=== PATIENT | female | born 1975 | race Caucasian/White ===

== ENCOUNTER 2016-10-25 14:30 | Inpatient (IN) | payer MEDICAID ==
[~2016-10-25] VITALS: Ht 157.5 cm; Wt 123.4 kg
[~2016-10-25 14:30] MED LIST: ACT30 PO; ASPIR 8181 MG PO; ASPIR-LOW81 M1 PO; ASPIRIN; ATI0.5 PO; CIP500 PO; COL100 PO; COZAAR100 MG PO; COZAAR50 MG PO; FERROUS SULFAT325 M2 PO; GABAPENTIN PO; GLIPIZIDE5 MG PO; GLU850 PO; IBU-6600 MG PO; JARDIANCE25 MG PO; KEF500 PO; LEXAPRO10 MG PO; LOR PO; LOSARTAN; LOSARTAN PO; MEDDP PO; METFORMIN HCL1000 MG PO; MOTRIN800 MG PO; NOR10T PO; PER5 PO; PRI20 PO; PRILOSEC; ROBAXIN-750750 MG PO; SIMVASTATIN; SIMVASTATIN20 M1 PO; TRE400 PO; VENTOLIN H0.09 MG/A1 INH; VIC PO; ZOC20 PO
[2016-10-25 17:05] LABS: BASOPHIL % 0.4 % (0-2); CALCIUM 8.7 mg/dL (8.5-10.1); CARBON DIOXIDE 27.2 mmol/L (21-32); CHLORIDE SERUM 104 mmol/L (98-107); CREATININE SERUM 0.7 mg/dL (0.6-1.0); GFR1 > 60 mL/min; GLUCOSE SERUM 101 mg/dL (74-106); PLATELET COUNT 344 x10^3mcL (130-400); POTASSIUM SERUM 4.1 mmol/L (3.5-5.1); SODIUM SERUM 139 mmol/L (136-145)
[2016-10-25 17:07] LABS: RED CELL DISTRIBUTION WIDTH 24.6 % (11.5-14.5)
[2016-10-25 17:11] LABS: ALBUMIN 3.6 g/dL (3.4-5.0); ALKALINE PHOSPHATASE 113 U/L (46-116); ALT/SGPT 109 U/L (14-59); AST/SGOT 76 U/L (15-37); BILIRUBIN TOTAL 0.2 mg/dL (0.20-1.00); TOTAL PROTEIN, SERUM 7.8 g/dL (6.4-8.2)
[2016-10-25] MEDS ORDERED: METOPROLOL SUCC50 M2 PO (17:44)
[2016-10-25 18:50] LABS: T3 TOTAL 1.14 ng/mL
[2016-10-25 18:51] LABS: CHOLESTEROL/HDL RATIO 3.8; MAGNESIUM 1.7 mg/dL (1.8-2.4); PHOSPHOROUS 3.6 mg/dL (2.5-4.9)
[2016-10-25 18:59] LABS: FREE T4 0.79 ng/dL (0.76-1.46); FREE THYROXINE INDEX 2.4 ug/dL (1.4-4.5); T4(THYROXINE) 7.8 ug/dL (4.7-13.3)
[2016-10-25 20:13] VITALS: BP 125/71
[2016-10-26] VITALS (7 sets, daily range): BP systolic 96–123; BP diastolic 57–79
[2016-10-26 01:06] LABS: microscopic required? NO
[2016-10-26 01:19] LABS: UA SPECIFIC GRAVITY 1.015 (1.005-1.035); urine erythrocyte NEGATIVE (NEGATIVE)
[2016-10-26 01:25] LABS: AMPHETAMINE QUAL UR NONE DETECTED (NEG <=1000)
[2016-10-26 06:09] LABS: BASOPHIL % 0.4 % (0-2); PLATELET COUNT 295 x10^3mcL (130-400)
[2016-10-26 06:26] LABS: CALCIUM 8.4 mg/dL (8.5-10.1); CARBON DIOXIDE 25.8 mmol/L (21-32); CHLORIDE SERUM 104 mmol/L (98-107); CREATININE SERUM 0.6 mg/dL (0.6-1.0); GFR1 > 60 mL/min; GLUCOSE SERUM 108 mg/dL (74-106); PHOSPHOROUS 4.6 mg/dL (2.5-4.9); POTASSIUM SERUM 3.6 mmol/L (3.5-5.1); SODIUM SERUM 138 mmol/L (136-145)
[2016-10-26 08:04] LABS: rbc morphology (normal/abnorm) ABNORMAL (NORMAL)
[2016-10-26] MEDS ORDERED: OMEPRAZOLE40 M1 PO (16:43)
[2016-10-26] MEDS ORDERED: GLUCOTROL5 MG PO (17:35)
== END 2016-10-26 18:33 | disposition home or self-care (01) | DRG 243 ==
LOC: ED 14:30 → DU 17:28
PROVIDERS: Emergency Medicine; ADMIT Family Medicine
DX: K21.9 Gastro-esophageal reflux disease without esophagitis (principal); D68.69 Other thrombophilia; E11.51 Type 2 diabetes mellitus with diabetic peripheral angiopathy without gangrene; Z68.42 Body mass index [BMI] 45.0-49.9, adult; E11.65 Type 2 diabetes mellitus with hyperglycemia; E83.42 Hypomagnesemia; B37.3 Candidiasis of vulva and vagina; I10 Essential (primary) hypertension; J45.909 Unspecified asthma, uncomplicated; I16.0 Hypertensive urgency; F41.8 Other specified anxiety disorders; E78.5 Hyperlipidemia, unspecified; Z87.442 Personal history of urinary calculi
CPT/HCPCS: 80307; 82962; 83880; 84439; 85378; G0480; J1450; J2270; J3010; J3535; J7030; J7040; J7613; Q0092

== ENCOUNTER 2016-10-28 02:36 | Emergency (ER) | payer MEDICAID ==
[~2016-10-28 02:36] MED LIST changes: +GLUCOTROL5 MG PO; +METOPROLOL SUCC50 M2 PO; +OMEPRAZOLE40 M1 PO
[2016-10-28 06:01] VITALS: BP 146/72
== END 2016-10-28 06:01 | disposition home or self-care (01) ==
LOC: ED 02:36
DX: M54.5 Low back pain (principal); E11.9 Type 2 diabetes mellitus without complications; I10 Essential (primary) hypertension; E78.00 Pure hypercholesterolemia, unspecified; Z98.890 Other specified postprocedural states
CPT/HCPCS: J1885

== ENCOUNTER 2016-12-04 05:25 | Inpatient (IN) | payer MEDICAID ==
[~2016-12-04] VITALS: Ht 157.5 cm; Wt 120.8 kg
[2016-12-04 07:00] LABS: CALCIUM 9.1 mg/dL (8.5-10.1); CARBON DIOXIDE 28.4 mmol/L (21-32); CHLORIDE SERUM 102 mmol/L (98-107); CREATININE SERUM 0.7 mg/dL (0.6-1.0); GFR1 > 60 mL/min; GLUCOSE SERUM 184 mg/dL (74-106); POTASSIUM SERUM 3.9 mmol/L (3.5-5.1); SODIUM SERUM 138 mmol/L (136-145)
[2016-12-04 07:03] LABS: ALBUMIN 3.4 g/dL (3.4-5.0); ALKALINE PHOSPHATASE 93 U/L (46-116); ALT/SGPT 95 U/L (14-59); AST/SGOT 43 U/L (15-37); BILIRUBIN TOTAL 0.3 mg/dL (0.20-1.00); TOTAL PROTEIN, SERUM 7.7 g/dL (6.4-8.2)
[2016-12-04 07:17] LABS: BASOPHIL % 0.4 % (0-2); PLATELET COUNT 285 x10^3mcL (130-400)
[2016-12-04 07:24] LABS: RED CELL DISTRIBUTION WIDTH 15.7 % (11.5-14.5)
[2016-12-04] MEDS ORDERED: GLUCOTROL10 MG PO (08:32)
[2016-12-04] MEDS ORDERED: MAPAP500 M3 PO (08:33)
[2016-12-04] MEDS ORDERED: DILTIAZEM HCL120 M2 PO (08:33)
[2016-12-04] MEDS ORDERED: MASON NATURAL1000 IU PO (08:34)
[2016-12-04] MEDS ORDERED: FLA500 PO (08:34)
[2016-12-04] MEDS ORDERED: DICLOFENAC SODI75 MG PO (08:35)
[2016-12-04 09:03] LABS: PHOSPHOROUS 4.3 mg/dL (2.5-4.9)
[2016-12-04 09:15] LABS: FREE T4 1.43 ng/dL (0.76-1.46); FREE THYROXINE INDEX 3.6 ug/dL (1.4-4.5)
[2016-12-04 09:20] LABS: T3 TOTAL 1.77 ng/mL
[2016-12-04 09:47] LABS: CHOLESTEROL/HDL RATIO 3.9; MAGNESIUM 1.6 mg/dL (1.8-2.4)
[2016-12-04 11:43] VITALS: BP 137/87
[2016-12-04 18:31] VITALS: BP 119/78
[2016-12-04 21:25] VITALS: BP 127/73
[2016-12-05 00:20] LABS: microscopic required? NO
[2016-12-05 00:48] LABS: UA SPECIFIC GRAVITY 1.015 (1.005-1.035); urine erythrocyte NEGATIVE (NEGATIVE)
[2016-12-05 00:56] LABS: AMPHETAMINE QUAL UR NONE DETECTED (NEG <=1000)
[2016-12-05 05:12] VITALS: BP 151/85
[2016-12-05 06:29] LABS: BASOPHIL % 0.4 % (0-2); PLATELET COUNT 261 x10^3mcL (130-400)
[2016-12-05 06:34] LABS: CALCIUM 8.6 mg/dL (8.5-10.1); CHLORIDE SERUM 104 mmol/L (98-107); CREATININE SERUM 0.6 mg/dL (0.6-1.0); GFR1 > 60 mL/min; GLUCOSE SERUM 159 mg/dL (74-106); MAGNESIUM 2.1 mg/dL (1.8-2.4); POTASSIUM SERUM 4.2 mmol/L (3.5-5.1); SODIUM SERUM 138 mmol/L (136-145)
[2016-12-05 07:23] LABS: RED CELL DISTRIBUTION WIDTH 14.9 % (11.5-14.5)
[2016-12-05 08:45] VITALS: BP 151/85
[2016-12-05 09:44] VITALS: BP 120/81
[2016-12-05 13:20] VITALS: BP 119/75
[2016-12-05 21:44] VITALS: BP 110/63
[2016-12-06 05:38] VITALS: BP 122/87
[2016-12-06 07:18] LABS: BASOPHIL % 0.4 % (0-2); PLATELET COUNT 239 x10^3mcL (130-400)
[2016-12-06 07:20] LABS: RED CELL DISTRIBUTION WIDTH 15.4 % (11.5-14.5)
[2016-12-06 07:37] LABS: CALCIUM 8.5 mg/dL (8.5-10.1); CARBON DIOXIDE 23.9 mmol/L (21-32); CHLORIDE SERUM 105 mmol/L (98-107); CREATININE SERUM 0.6 mg/dL (0.6-1.0); GFR1 > 60 mL/min; GLUCOSE SERUM 163 mg/dL (74-106); MAGNESIUM 1.7 mg/dL (1.8-2.4); PHOSPHOROUS 3.9 mg/dL (2.5-4.9); POTASSIUM SERUM 4.2 mmol/L (3.5-5.1); SODIUM SERUM 137 mmol/L (136-145)
[2016-12-06 09:26] VITALS: BP 126/70
[2016-12-06 12:25] VITALS: BP 127/88
[2016-12-06 15:57] VITALS: BP 115/41
[2016-12-06 18:21] VITALS: BP 120/63
[2016-12-06 22:04] VITALS: BP 137/80
[2016-12-07 06:22] VITALS: BP 131/85
[2016-12-07 06:37] LABS: BASOPHIL % 0.5 % (0-2); PLATELET COUNT 242 x10^3mcL (130-400)
[2016-12-07 06:40] LABS: RED CELL DISTRIBUTION WIDTH 14.9 % (11.5-14.5)
[2016-12-07 06:53] LABS: CALCIUM 8.4 mg/dL (8.5-10.1); CARBON DIOXIDE 24.6 mmol/L (21-32); CHLORIDE SERUM 106 mmol/L (98-107); CREATININE SERUM 0.6 mg/dL (0.6-1.0); GFR1 > 60 mL/min; GLUCOSE SERUM 128 mg/dL (74-106); MAGNESIUM 1.6 mg/dL (1.8-2.4); PHOSPHOROUS 4.1 mg/dL (2.5-4.9); POTASSIUM SERUM 3.9 mmol/L (3.5-5.1); SODIUM SERUM 141 mmol/L (136-145)
[2016-12-07 08:30] VITALS: BP 115/74
[2016-12-07 10:22] LABS: TOTAL PROTEIN CSF 105 mg/dL (15-45)
[2016-12-07 10:29] LABS: APPEARANCE CSF HAZY; COLOR CSF COLORLESS; WBC CSF 1290 /cumm (0-5)
[2016-12-07 10:30] LABS: LYMPHOCYTE CSF 87 % (40-80); MONOCYTE CSF 8 %; RBC CSF 0 /cumm (0)
[2016-12-07 13:40] VITALS: BP 140/82
[2016-12-07 17:26] VITALS: BP 131/79
[2016-12-07 21:36] VITALS: BP 129/82
[2016-12-08 05:38] VITALS: BP 106/66
[2016-12-08 06:36] LABS: CALCIUM 8.4 mg/dL (8.5-10.1); CARBON DIOXIDE 26.4 mmol/L (21-32); CHLORIDE SERUM 106 mmol/L (98-107); CREATININE SERUM 0.6 mg/dL (0.6-1.0); GFR1 > 60 mL/min; GLUCOSE SERUM 175 mg/dL (74-106); MAGNESIUM 1.8 mg/dL (1.8-2.4); SODIUM SERUM 140 mmol/L (136-145)
[2016-12-08 06:58] LABS: BASOPHIL % 0.5 % (0-2); PLATELET COUNT 248 x10^3mcL (130-400); RED CELL DISTRIBUTION WIDTH 14.9 % (11.5-14.5)
[2016-12-08 09:47] VITALS: BP 140/85
[2016-12-08 14:01] VITALS: BP 134/78
[2016-12-08 17:22] VITALS: BP 118/82
[2016-12-08 17:54] VITALS: BP 118/82
[2016-12-08 22:03] VITALS: BP 118/82
[2016-12-09 06:09] LABS: BASOPHIL % 0.4 % (0-2); PLATELET COUNT 266 x10^3mcL (130-400)
[2016-12-09 06:40] LABS: RED CELL DISTRIBUTION WIDTH 15.1 % (11.5-14.5)
[2016-12-09 07:48] LABS: CALCIUM 8.7 mg/dL (8.5-10.1); CARBON DIOXIDE 27.1 mmol/L (21-32); CHLORIDE SERUM 105 mmol/L (98-107); CREATININE SERUM 0.6 mg/dL (0.6-1.0); GFR1 > 60 mL/min; GLUCOSE SERUM 113 mg/dL (74-106); POTASSIUM SERUM 3.8 mmol/L (3.5-5.1); SODIUM SERUM 139 mmol/L (136-145)
[2016-12-09 09:00] VITALS: BP 115/62
[2016-12-09 13:55] VITALS: BP 120/70
[2016-12-09 17:30] VITALS: BP 136/79
[2016-12-09 22:17] VITALS: BP 120/73
[2016-12-10 05:58] VITALS: BP 126/70
[2016-12-10 07:14] LABS: CALCIUM 8.8 mg/dL (8.5-10.1); CARBON DIOXIDE 26.5 mmol/L (21-32); CHLORIDE SERUM 106 mmol/L (98-107); CREATININE SERUM 0.6 mg/dL (0.6-1.0); GFR1 > 60 mL/min; GLUCOSE SERUM 93 mg/dL (74-106); POTASSIUM SERUM 4.4 mmol/L (3.5-5.1); SODIUM SERUM 143 mmol/L (136-145)
[2016-12-10 10:04] VITALS: BP 135/88
[2016-12-10 12:26] VITALS: BP 135/88
[2016-12-10] MEDS ORDERED: MECLIZINE HCL12.5 MG PO ×2 (13:48→14:28)
[2016-12-10] MEDS ORDERED: ESGIC CAPSULE1 EACH PO (13:50)
[2016-12-10] MEDS ORDERED: NOR10T PO (13:50)
== END 2016-12-10 15:15 | disposition home or self-care (01) | DRG 50 ==
LOC: ED 05:25 → DU 08:22 → MU 12-10 06:55
PROVIDERS: Emergency Medicine; ADMIT Family Medicine
PROC: B01B1ZZ Fluoroscopy of Spinal Cord using Low Osmolar Contrast (ICD-10-PCS; principal; 2016-12-06)
PROC: 009U3ZX Drainage of Spinal Canal, Percutaneous Approach, Diagnostic (ICD-10-PCS; principal; 2016-12-06)
DX: A92.39 West Nile virus infection with other complications (principal); A87.8 Other viral meningitis; E11.51 Type 2 diabetes mellitus with diabetic peripheral angiopathy without gangrene; E11.65 Type 2 diabetes mellitus with hyperglycemia; Z68.42 Body mass index [BMI] 45.0-49.9, adult; K76.0 Fatty (change of) liver, not elsewhere classified; M94.0 Chondrocostal junction syndrome [Tietze]; I10 Essential (primary) hypertension; E05.90 Thyrotoxicosis, unspecified without thyrotoxic crisis or storm; E66.01 Morbid (severe) obesity due to excess calories; Z87.442 Personal history of urinary calculi; Z79.84 Long term (current) use of oral hypoglycemic drugs
CPT/HCPCS: 62272; 78598; 82962; 83880; 84439; 86694; 86788; 86789; 87116; 87206; 87210; 94150; A9540; J0696; J0780; J1885; J2060; J2270; J2405; J3010; J3475; J7030; J7613; J7620; J8597; Q0092; Q0163

== ENCOUNTER 2016-12-29 03:23 | Emergency (ER) | payer MEDICAID ==
[~2016-12-29 03:23] MED LIST changes: +DICLOFENAC SODI75 MG PO; +DILTIAZEM HCL120 M2 PO; +ESGIC CAPSULE1 EACH PO; +FLA500 PO; +GLUCOTROL10 MG PO; +MAPAP500 M3 PO; +MASON NATURAL1000 IU PO; +MECLIZINE HCL12.5 MG PO
[2016-12-29 06:23] VITALS: BP 105/59
== END 2016-12-29 06:24 | disposition home or self-care (01) ==
LOC: ED 03:23
DX: R51 Headache (principal); M54.9 Dorsalgia, unspecified; J45.909 Unspecified asthma, uncomplicated; I10 Essential (primary) hypertension; E11.9 Type 2 diabetes mellitus without complications; Z79.84 Long term (current) use of oral hypoglycemic drugs
CPT/HCPCS: J1200; J2765; J3010; J3475; J7030

== ENCOUNTER 2017-03-03 16:19 | Inpatient (IN) | payer MEDICAID ==
[~2017-03-03] VITALS: Ht 157.5 cm; Wt 127.0 kg
--- NOTE | 2017-03-03 17:09 | NUR ---
LOWER BILATERAL QUAD 10/10 PAIN THAT STARTED TODAY 1200NOON. ABD ROUND AND FIRM TENDER TO PALP WITHOUT MASSESS PRESENT. BS PRESENT. HAD N/V/D TODAY. NOW CLAIMS DIARRHEA. PT ARRIVES ALERT AND ORIENTED WITH FLUSHED FACE AND DIAPHORETIC. SHOWS MILD DISTRESS DUE TO 10/10 PAIN. URINE OBTAINED AND DIP PERFORMED. AWATING MD VANG AT THIS TIME
--- NOTE | 2017-03-03 18:16 | NUR ---
DR PIÑA AT BEDSIDE FOR EVAL
--- NOTE | 2017-03-03 18:48 | NUR ---
LEFT FOR CT VIA RNEY
[2017-03-03 19:00] LABS: BASOPHIL % 0.2 % (0-2); PLATELET COUNT 289 x10^3mcL (130-400); RED CELL DISTRIBUTION WIDTH 14.4 % (11.5-14.5)
[2017-03-03 19:05] LABS: CALCIUM 8.6 mg/dL (8.5-10.1); CARBON DIOXIDE 23.7 mmol/L (21-32); CHLORIDE SERUM 105 mmol/L (98-107); CREATININE SERUM 0.7 mg/dL (0.6-1.0); GFR1 > 60 mL/min; GLUCOSE SERUM 162 mg/dL (74-106); POTASSIUM SERUM 3.9 mmol/L (3.5-5.1); SODIUM SERUM 139 mmol/L (136-145)
[2017-03-03 19:09] LABS: ALBUMIN 3.5 g/dL (3.4-5.0); ALKALINE PHOSPHATASE 94 U/L (46-116); ALT/SGPT 88 U/L (14-59); AMYLASE 43 U/L (25-115); AST/SGOT 45 U/L (15-37); LIPASE 147 IU/L (73-393); TOTAL PROTEIN, SERUM 7.7 g/dL (6.4-8.2)
--- NOTE | 2017-03-03 19:11 | NUR ---
REPORT GIVEN TO ERIK TOOL PUSHER JEANETTE
--- NOTE | 2017-03-03 19:26 | NUR ---
PT TAKEN TO US VIA WC.
--- NOTE | 2017-03-03 19:58 | NUR ---
MEDICATED PT FOR PAIN. PLEASE SEE EMAR.
[2017-03-03] MEDS ORDERED: COZAAR50 M1 PO (22:14)
[2017-03-03] MEDS ORDERED: ADULT LOW DOSE81 MG PO (22:15)
[2017-03-03] MEDS ORDERED: JARDIANCE25 MG PO (22:15)
[2017-03-03] MEDS ORDERED: GOOD SENSE OMEP20 MG PO (22:15)
--- NOTE | 2017-03-03 22:22 | NUR ---
REPORT GIVEN TO JEANETTE DUONG TO ASSUME CARE OF THE PT.
[2017-03-03 22:59] LABS: T3 TOTAL 1.06 ng/mL
[2017-03-03 23:06] LABS: FREE T4 1.01 ng/dL (0.76-1.46); FREE THYROXINE INDEX 2.8 ug/dL (1.4-4.5); T4(THYROXINE) 8.9 ug/dL (4.7-13.3)
[2017-03-03 23:13] VITALS: BP 121/66
[2017-03-03 23:14] LABS: PHOSPHOROUS 3.4 mg/dL (2.5-4.9)
--- NOTE | 2017-03-03 23:16 | NUR ---
RECEIVED PT FROM ED VIA BIANKA. ORIENTED PT TO ROOM AND SURROUNDINGS. IV NOTED TO LEFT WRIST PATENT AND INTACT .TELE 24 PALCED ON PT READING NSR. INSTRUCTED PT ON THE USE OF CALL LIGHT FOR ASSISTANCE. ENDORSED PT TO PRIMARY NURSE RHODA
[2017-03-03 23:24] LABS: CHOLESTEROL/HDL RATIO 4.9
--- NOTE | 2017-03-04 01:44 | NUR ---
PT C/O OF MID UPPER ABDO PAIN CRAMPING IN NATUREAT THE SCALE OF 6/10,PT WAS MEDICATED WITH M/S 2 MG IV ORDER AND WILL CONTINUE TO MONITOR.
--- NOTE | 2017-03-04 01:45 | NUR ---
URINE SAMPLE COLLECTED AND WILL SEND TO THE LAB,WILL CONTINUE TO MONITOR.
[2017-03-04 02:37] LABS: microscopic required? NO
[2017-03-04 02:52] LABS: AMPHETAMINE QUAL UR NONE DETECTED (NEG <=1000)
[2017-03-04 03:02] LABS: urine erythrocyte NEGATIVE (NEGATIVE)
[2017-03-04 05:09] VITALS: BP 127/84
--- NOTE | 2017-03-04 06:19 | NUR ---
PT HAD A RESTING NIGHT V/S STABLE,KEPT CLEAN AND DRY TO TOUXH AND NO CHANGE IN CONDITION AT THIS TIME,WILL CONTINUE TO MONITOR.
[2017-03-04 06:38] LABS: BASOPHIL % 0.4 % (0-2); PLATELET COUNT 261 x10^3mcL (130-400); RED CELL DISTRIBUTION WIDTH 14.3 % (11.5-14.5)
--- NOTE | 2017-03-04 07:30 | NUR ---
RESTING IN BED, AROUSABLE TO LIGHT NOISE, ABLE TO VERBALIZE NEEDS WITH CLEAR AND COHERENT SPEECH, REPORTS ABD PAIN 1/10, CONTROLLED AT THIS LEVEL, "FEELS HUNRY," DENIES GI DISTRESS, ACTIVE BOWEL SOUNDS X4 QUADS, ABD ROUND, SOFT, NONDISTENDED, NONTENDER, LAST MENSES 02/04/17, , HX TUBAL LIGATION 15 YRS AGO, DENEIS HEAVY MENSES X2YRS, ON TELE #24 NSR ON MONITOR, DENIES HEART RELATED PAIN OR DISCOMFORT, IV AT L/WRIST INFUSING NS AT 150ML/HR CALL LIGHT WITHIN REACH, WILL CONTINUE TO PROVIDE CARE.
[2017-03-04 08:50] VITALS: BP 105/62
--- NOTE | 2017-03-04 10:46 | NUR ---
LATE ENTRY FOR 0845: ABLE TO TAKE ALL PO MEDS WITHOUT GI DISTRESS, REPORTS ABD PAIN 3/10, REQUESTING PAIN MED, OFFERED NORCO, PT STATES NORCO CAUSES HER "HEARTBURN AND ITCHY ALL OVER," ASSISTED TO POSITION OF COMFORT, WILL CONTINUE TO PROVIDE CARE.
--- NOTE | 2017-03-04 10:51 | NUR ---
PT RESTING IN BED WITH EYES CLOSED, SNORING, UNDER NO APPARENT DISTRESS.
--- NOTE | 2017-03-04 11:05 | NUR ---
PT C/O ABD PAIN 01/10, DECLINED HOT COMPRESS, ASSISTED TO POSITION OF COMFORT, PROVIDED PAIN MED ORDERED, CALL LIGHT WITHIN REACH.
--- NOTE | 2017-03-04 13:05 | NUR ---
ABLE TO TOLERATE LUNCH WITHOUT GI DISTRESS, ABD PAIN IS CONTROLLED AT 1/10, CALL LIGHT WITHIN REACH.
[2017-03-04 16:45] VITALS: BP 97/68
--- NOTE | 2017-03-04 18:20 | NUR ---
HAS BEEN TOLERATING BOWEL PREP, IS AWARE OF COLONOSCOPY IN AM 03/05/17, PAIN IS CONTROLLED AT THIS TIME, DENIES GI DISTRESS, WILL BE NPO AFTER MIDNIGHT, NO OTHER SIGNIFICANT CHANGES NOTED, CARE WILL BE ENDORSED TO NIGHT NURSE.
--- NOTE | 2017-03-04 19:37 | NUR ---
SHIFT REASSESSMENT DONE.PATIENT ALERT AND ORIENTED.CZECH,NEEDS ANTICIPATED.FAMILY AT BEDSIDE,SUPPORTIVE OF CARE.PATIENT IN RESTROOM,BM AT THIS TIME.BRP.NS AT 150 CC/ HOUR.IV SITE GOOD.MEDSURG STATUS,NO TELE.SCD.CAME IN WITH ABD PAIN,COLONOSCOPY IN AM,NO CONSENT YET,CALL LITE IN REACH.
[2017-03-04 20:48] VITALS: BP 112/54
--- NOTE | 2017-03-04 21:25 | NUR ---
NS AT 150 CC/ HOUR.IV SITE,HAS NO EXTENSION TUBING,APPLIED ONE FOR EASIER HANDLING,MEDS GIVEN PO WITHOUT ANY INCEDENT.FAMILY WAS HERE VISITING.CALL LITE IN REACH.MAINLY [place],NEEDS ANTICIPATED.
--- NOTE | 2017-03-05 02:00 | NUR ---
CHECKLIST INITIATED,NPO AFTER MIDNITE,COLONOSCOPY TO FOLLOW IN AM.WILL HAVE HER SIGN CONSENT LATER THIS AM.NS AT 150 CC/ HOUR.IV SITE R WRIST PATENT.CALL LIGHT IN REACH.
[2017-03-05 05:29] VITALS: BP 100/66
--- NOTE | 2017-03-05 06:10 | NUR ---
PATIENT I AND O MEASURED.NS AT 150 CC/ HOUR.CONSENT FOR COLONOSCOPY IN CHART AND SIGNED.GOOD CLEAR RETURN BM COLONOSCOPY PREP.WILL ENDORSE TO INCOMING SHIFT.
[2017-03-05 06:54] LABS: CALCIUM 8.2 mg/dL (8.5-10.1); CARBON DIOXIDE 22.8 mmol/L (21-32); CHLORIDE SERUM 108 mmol/L (98-107); CREATININE SERUM 0.5 mg/dL (0.6-1.0); GFR1 > 60 mL/min; GLUCOSE SERUM 115 mg/dL (74-106); POTASSIUM SERUM 3.6 mmol/L (3.5-5.1); SODIUM SERUM 139 mmol/L (136-145)
[2017-03-05 07:27] LABS: BASOPHIL % 0.7 % (0-2); PLATELET COUNT 261 x10^3mcL (130-400); RED CELL DISTRIBUTION WIDTH 14.2 % (11.5-14.5)
--- NOTE | 2017-03-05 07:30 | NUR ---
RESTING IN BED, AROUSABLE TO LIGHT NOISE, ABLE TO VERBALIZE NEEDS WITH CLEAR AND COHERENT SPEECH, SYM CHEST EXPANSION, UNLABORED BREATHING, ACTIVE BOWEL SOUNDS X4 QUADS, REPORTS ABD PAIN 2/10, DENIES N&V, COMPLETED BOWEL PREP FOR COLONOSCOPY THIS AM, CALL LIGHT WITHIN REACH, WILL CONTINUE TO PROVIDE CARE.
--- NOTE | 2017-03-05 07:42 | NUR ---
REPORT GIVEN TO DEMETRIO REID
[2017-03-05 09:20] VITALS: BP 115/80
--- NOTE | 2017-03-05 10:50 | NUR ---
LATE ENTRY FOR 829: BP MEDS NOT GIVEN, PT REPORTED FEELING "GENERALIZED WEAKNESS," BP 105/62, WILL BE HAVING COLONOSCOPY TODAY.
[2017-03-05 11:01] VITALS: BP 106/71
--- NOTE | 2017-03-05 15:21 | NUR ---
C/O DARDEN 11/10, LIGHTS DIMMED, DOOR PARTIALLY CLOSED, WILL ADMINISTER DOSE OF FIORICET ORDERED.
--- NOTE | 2017-03-05 16:50 | NUR ---
SITTING UP IN CHAIR AFTER AMBULATING IN HALLWAY, REPORTS ABD PAIN AND DARDEN CONTROLLED AT THIS, DR DAVIS IN ROOM TO SPEAK W/ PT, PROVIDED RESULTS FROM COLONOSCOPY, ALL QUESTIONS ANSWERED.
[2017-03-05 17:28] VITALS: BP 101/63
--- NOTE | 2017-03-05 19:30 | NUR ---
REC'D PT FROM DAY NURSE. AAOX4, SPEECH CLEAR, FOLLOWS COMMANDS. TURKISH SPEAKING. FAMILY AT BEDSIDE. MED SURG PT. NO TELE. DENIES CP, DIZZINESS, OR PALPITATIONS. NO EDEMA NOTED. DENIES RESP DISTRESS OR SOB. BREATHING EVEN/UNLABORED ON RA. REPORTS ABD PAIN TO MARK LOWER QUAD 4/10, TOLERABLE AT THIS TIME. PT IS S/P COLONOSCOPY. NO BM SINCE PROCEDURE BUT IS PASSING GAS. DENIES N/V. TOLERATING DIET. VOIDING FREELY. AMBULATORY. SKIN INTACT. CALL LIGHT WITHIN REACH, BED AT LOWEST POSITION. WILL CONTINUE TO MONITOR.
--- NOTE | 2017-03-05 21:30 | NUR ---
PT C/O DARDEN 10/11. FIORICET GIVEN PER ORDER. WILL MONITOR FOR RELIEF.
[2017-03-05 21:40] VITALS: BP 104/67
--- NOTE | 2017-03-05 22:00 | NUR ---
PT C/O SCRATCHY THROAT WITH DRY COUGH. DR. BOB MADE AWARE.
--- NOTE | 2017-03-05 22:48 | NUR ---
ROBITUSSIN WITH CODEINE GIVEN FOR ITCHY THROAT. WILL MONITOR FOR RELIEF.
--- NOTE | 2017-03-05 23:09 | NUR ---
PT C/O PELVIC PAIN 01/10. MORPHINE GIVEN PER ORDER. WILL MONITOR FOR RELIEF.
--- NOTE | 2017-03-06 00:40 | NUR ---
PT RESTING IN BED WITH EYES CLOSED. NO SIGNS OF DISTRESS NOTED. BREATHING EVEN/UNLABORED ON RA. CALL LIGHT WITHIN REACH, BED AT LOWEST POSITION. WILL CONTINUE TO MONITOR.
--- NOTE | 2017-03-06 02:39 | NUR ---
PT AWAKE. STILL C/O SCRATCHY THROAT. STATED THE ROBITUSSIN DID NOT WORK. DR. BOB MADE AWARE. CEPACOL GIVEN PER ORDER. WILL MONITOR FOR RELIEF.
--- NOTE | 2017-03-06 02:52 | NUR ---
PT C/O SOME SOB. EXP WHEEZE. RR 18, SPO2 98% ON RA. RT NOTIFIED. BREATHING TREATMENT IN PROGRESS.
--- NOTE | 2017-03-06 03:17 | NUR ---
WHEEZING SUBSIDED. DENIES RESP DISTRESS OR SOB. BREATHING EVEN/UNLABORED ON RA. STILL HAS SCRATCHY THROAT WITH DRY COUGH. WILL GIVE ROBITUSSIN WHEN DUE.
[2017-03-06 05:26] VITALS: BP 101/59
[2017-03-06 06:14] LABS: BASOPHIL % 0.4 % (0-2); PLATELET COUNT 291 x10^3mcL (130-400); RED CELL DISTRIBUTION WIDTH 14.2 % (11.5-14.5)
--- NOTE | 2017-03-06 06:26 | NUR ---
PT RESTING IN BED. STILL HAS A DRY COUGH. ROBITUSSIN WITH CODEINE GIVEN PER ORDER. NO OTHER COMPLAINTS AT THIS TIME. NO BM TODAY, PASSING GAS. TOLERATING DIET. NO SIGNIFICANT CHANGES DURING SHIFT. CALL LIGHT WITHIN REACH, BED AT LOWEST POSITION. WILL ENDORSE TO DAY NURSE.
[2017-03-06 07:09] LABS: CALCIUM 8.9 mg/dL (8.5-10.1); CARBON DIOXIDE 26.1 mmol/L (21-32); CHLORIDE SERUM 106 mmol/L (98-107); CREATININE SERUM 0.5 mg/dL (0.6-1.0); GFR1 > 60 mL/min; GLUCOSE SERUM 146 mg/dL (74-106); MAGNESIUM 1.7 mg/dL (1.8-2.4); PHOSPHOROUS 4.1 mg/dL (2.5-4.9); POTASSIUM SERUM 3.3 mmol/L (3.5-5.1); SODIUM SERUM 138 mmol/L (136-145)
--- NOTE | 2017-03-06 07:30 | NUR ---
RESTING IN BED, AROUSABLE TO LIGHT NOISE, REPORTS DARDEN AND ABD PAIN CONTROLLED AT THIS TIME, DENIES N&V, IV HEP LOCK, CALL LIGHT WITHIN REACH, WILL CONTINUE TO PROVIDE CARE.
--- NOTE | 2017-03-06 09:10 | NUR ---
ABLE TO TAKE ALL MEDS WITHOUT GI DISTRESS, DARDEN IS CONTROLLED AT 2/10, CALL LIGHT WITHIN REACH, WILL CONTINUE TO PROVIDE CARE.
[2017-03-06 09:32] VITALS: BP 115/74
--- NOTE | 2017-03-06 11:00 | NUR ---
C/O SOB AND FATIGUE, LUNGS WITH WHEEZING AT MARK UPPER LOBES, RT CALLED FOR TREATMENT, DR RYAN BURNS, ASSISTED TO SIT UP IN BED FOR BEST BREATHING POSITION, CALL LIGHT WITHIN REACH, WILL CONTINUE TO PROVIDE CARE.
--- NOTE | 2017-03-06 13:53 | NUR ---
PATIENT STATES SHE HAS A SEVERE ALLERGIC REACTION TO IBUPROFEN, DR DAVIS MADE AWARE.
--- NOTE | 2017-03-06 15:04 | NUR ---
DR DAVIS AT BEDSIDE TO SPEAK WITH PATIENT REGARDING DISCHARGE ORDERS.
[2017-03-06 15:17] VITALS: BP 115/74
[2017-03-07] MEDS ORDERED: ZOCOR40 MG PO (10:54)
== END 2017-03-06 15:56 | disposition home or self-care (01) | DRG 249 ==
LOC: ED 16:19 → DU 21:58 → MU 21:58 → DU 22:48 → MU 03-04 11:19
PROVIDERS: Internal Medicine Gastroenterology; Specialist; ADMIT Family Medicine
PROC: 0DBP8ZZ Excision of Rectum, Via Natural or Artificial Opening Endoscopic (ICD-10-PCS; principal; 2017-03-05 09:00)
DX: K52.9 Noninfective gastroenteritis and colitis, unspecified (principal); N17.0 Acute kidney failure with tubular necrosis; D68.69 Other thrombophilia; E11.51 Type 2 diabetes mellitus with diabetic peripheral angiopathy without gangrene; R65.10 Systemic inflammatory response syndrome (SIRS) of non-infectious origin without acute organ dysfunction; E11.65 Type 2 diabetes mellitus with hyperglycemia; K76.0 Fatty (change of) liver, not elsewhere classified; E44.1 Mild protein-calorie malnutrition; Z68.43 Body mass index [BMI] 50.0-59.9, adult; E66.01 Morbid (severe) obesity due to excess calories; R31.0 Gross hematuria; E87.6 Hypokalemia; D12.8 Benign neoplasm of rectum; K64.8 Other hemorrhoids; E78.5 Hyperlipidemia, unspecified; Z87.442 Personal history of urinary calculi; Z79.84 Long term (current) use of oral hypoglycemic drugs
CPT/HCPCS: 45378; 82962; 83880; 84439; J0694; J1170; J1200; J1610; J2250; J2270; J2310; J2405; J3010; J3490; J7030; J7613

== ENCOUNTER 2019-03-23 20:18 | Emergency (ER) | payer MEDICAID ==
[~2019-03-23] VITALS: Ht 157.5 cm; Wt 130.2 kg
[~2019-03-23 20:18] MED LIST changes: +ADULT LOW DOSE81 MG PO; +COZAAR50 M1 PO; +GOOD SENSE OMEP20 MG PO; +ZOCOR40 MG PO
[2019-03-23 20:41] VITALS: Ht 157.5 cm; Wt 130.2 kg
[2019-03-23 22:43] LABS: BASOPHIL % 0.5 % (0-2); PLATELET COUNT 316 x10^3mcL (130-400)
[2019-03-23 22:44] LABS: RED CELL DISTRIBUTION WIDTH 18.5 % (11.5-14.5)
[2019-03-23 22:56] LABS: CALCIUM 8.2 mg/dL (8.5-10.1); CARBON DIOXIDE 29.7 mmol/L (21-32); CHLORIDE SERUM 102 mmol/L (98-107); CREATININE SERUM 0.7 mg/dL (0.6-1.0); GFR1 > 60 mL/min; GLUCOSE SERUM 271 mg/dL (74-106); POTASSIUM SERUM 3.9 mmol/L (3.5-5.1); SODIUM SERUM 138 mmol/L (136-145)
[2019-03-23 23:00] LABS: ALKALINE PHOSPHATASE 141 U/L (46-116); ALT/SGPT 87 U/L (14-59); AMYLASE 35 U/L (25-115); AST/SGOT 40 U/L (15-37); BILIRUBIN TOTAL 0.13 mg/dL (0.20-1.00); LIPASE 146 IU/L (73-393); TOTAL PROTEIN, SERUM 7.2 g/dL (6.4-8.2)
[2019-03-23 23:12] LABS: ALBUMIN 2.8 g/dL (3.4-5.0)
[2019-03-24 00:19] LABS: TOTAL IRON BINDING CAPACITY 358 ug/dL (250-450)
[2019-03-24 00:28] LABS: IRON 15 ug/dL (50-170)
[2019-03-24 01:30] VITALS: BP 135/89
== END 2019-03-24 01:30 | disposition home or self-care (01) ==
LOC: ED 20:18
PROVIDERS: Emergency Medicine
DX: K52.9 Noninfective gastroenteritis and colitis, unspecified (principal)
CPT/HCPCS: J2405

== ENCOUNTER 2019-04-29 17:28 | Emergency (ER) | payer MEDICAID ==
[~2019-04-29] VITALS: Ht 157.5 cm; Wt 129.3 kg
[2019-04-29 17:41] VITALS: Ht 157.5 cm; Wt 129.3 kg
[2019-04-29 19:49] VITALS: BP 119/77
== END 2019-04-29 19:49 | disposition home or self-care (01) ==
LOC: ED 17:28
DX: L03.317 Cellulitis of buttock (principal); J45.909 Unspecified asthma, uncomplicated; I10 Essential (primary) hypertension; E11.40 Type 2 diabetes mellitus with diabetic neuropathy, unspecified; Z87.442 Personal history of urinary calculi; Z88.8 Allergy status to other drugs, medicaments and biological substances; Z88.6 Allergy status to analgesic agent
CPT/HCPCS: J0696; J1885